=== PATIENT | male | born 1995 | race Caucasian/White ===

== ENCOUNTER 2017-08-16 15:13 | Emergency (ER) | payer OTHER ==
[~2017-08-16] VITALS: Ht 200.7 cm; Wt 77.1 kg
--- NOTE | 2017-08-16 18:30 | NUR ---
Patient does not wish to proceed with medical care recommended by Dr. Pawel MAHAN ). Patient given information related to possible complications, up to and including , which could occur as a result of leaving the hospital at this time. Patient verbalizes understanding of risks involved due to leaving against medical advice. Patient has signed AMA form.
== END 2017-08-16 18:30 | disposition left against medical advice (07) ==
LOC: ER 15:14
DX: Z53.21 Procedure and treatment not carried out due to patient leaving prior to being seen by health care provider (principal)
CPT/HCPCS: A4663

== ENCOUNTER 2019-06-30 13:08 | Emergency (ER) | payer MEDICAID, OTHER ==
[~2019-06-30] VITALS: Ht 200.7 cm; Wt 77.1 kg
--- NOTE | 2019-06-30 13:25 | NUR ---
PT IS IN ROOM #1B. DR PERERA EVALUATED THE PT.
[2019-06-30 13:55] VITALS: BP 133/72
--- NOTE | 2019-06-30 13:55 | NUR ---
PT WAS D/C'd TO HOME. D/C INSTRCTIONS GIVEN TO THE PT.
== END 2019-06-30 14:04 | disposition home or self-care (01) ==
LOC: ER 13:08
DX: J40 Bronchitis, not specified as acute or chronic (principal); F17.200 Nicotine dependence, unspecified, uncomplicated
CPT/HCPCS: A4663